=== PATIENT | female | born 1995 | race Two or more races ===

== ENCOUNTER 2019-02-03 18:16 | Emergency (ER) | payer OTHER ==
[~2019-02-03] VITALS: Ht 154.9 cm; Wt 81.6 kg
[2019-02-03 18:31] VITALS: Ht 154.9 cm; Wt 81.6 kg
[2019-02-03 19:32] LABS: CALCIUM 8.6 mg/dL (8.5-10.1); CHLORIDE SERUM 109 mmol/L (98-107); CREATININE SERUM 0.9 mg/dL (0.6-1.0); GFR1 > 60 mL/min; GLUCOSE SERUM 94 mg/dL (74-106); SODIUM SERUM 145 mmol/L (136-145)
[2019-02-03 19:33] LABS: PLATELET COUNT 301 x10^3mcL (130-400); RED CELL DISTRIBUTION WIDTH 12.7 % (11.5-14.5)
[2019-02-03 19:36] LABS: ALBUMIN 3.6 g/dL (3.4-5.0); ALKALINE PHOSPHATASE 100 U/L (46-116); ALT/SGPT 25 U/L (14-59); AST/SGOT 40 U/L (15-37); BILIRUBIN TOTAL 0.82 mg/dL (0.20-1.00); LIPASE 79 IU/L (73-393); TOTAL PROTEIN, SERUM 7.6 g/dL (6.4-8.2)
[2019-02-03 19:43] LABS: BASOPHIL % 0 % (0-2)
[2019-02-04 01:44] VITALS: BP 96/50
== END 2019-02-04 01:44 | disposition home or self-care (01) ==
LOC: ED 18:16
PROVIDERS: Emergency Medicine
DX: K29.70 Gastritis, unspecified, without bleeding (principal); N39.0 Urinary tract infection, site not specified; R51 Headache; Z90.49 Acquired absence of other specified parts of digestive tract
CPT/HCPCS: J0696; J1885; J2405; J2765; J3010; J3490; J7030; J7060; Q9967